=== PATIENT | male | born 1940 | race Caucasian/White ===

== ENCOUNTER → 2024-01-13 10:48 | Outpatient (REF) | payer MEDICARE, SELFPAY | LOC: RCS 10:48 | PROVIDERS: ATTENDING PHYSICIAN Nurse Practitioner; FAMILY PHYSICIAN Family Medicine | DX: I48.0 Paroxysmal atrial fibrillation (principal); R00.1 Bradycardia, unspecified; I25.10 Atherosclerotic heart disease of native coronary artery without angina pectoris | CPT/HCPCS: 93225; 93226 ==

== ENCOUNTER → 2024-01-18 06:22 | Day surgery (SDC) | payer MEDICARE, SELFPAY ==
[2024-01-18 09:25] LABS: Glucose - Point of Care 196 mg/dl (70-99)
== END ==
LOC: GI 06:22
PROVIDERS: ATTENDING PHYSICIAN Internal Medicine Gastroenterology
DX: K22.2 Esophageal obstruction (principal); K44.9 Diaphragmatic hernia without obstruction or gangrene; M25.78 Osteophyte, vertebrae; R13.14 Dysphagia, pharyngoesophageal phase; R13.12 Dysphagia, oropharyngeal phase; Z98.0 Intestinal bypass and anastomosis status
CPT/HCPCS: 43235; 82962

== ENCOUNTER → 2024-01-21 11:16 | Outpatient (REF) | payer MEDICARE, SELFPAY | LOC: DHCBC HW 11:16 | PROVIDERS: ATTENDING PHYSICIAN Nurse Practitioner; FAMILY PHYSICIAN Family Medicine | DX: I48.0 Paroxysmal atrial fibrillation (principal); I25.10 Atherosclerotic heart disease of native coronary artery without angina pectoris; R00.1 Bradycardia, unspecified | CPT/HCPCS: 93306 ==

== ENCOUNTER → 2024-01-27 09:08 | Outpatient (REF) | payer MEDICARE, SELFPAY ==
[2024-01-27 12:53] LABS: ALT (SGPT) 24 U/L (0-50); AST (SGOT) 36 U/L (17-59); Albumin 4.1 g/dl (3.5-5.0); Alkaline Phosphatase 72 U/L (38-126); Blood Urea Nitrogen 16 mg/dl (9-20); Calcium 9.6 mg/dl (8.4-10.2); Carbon Dioxide 31 mmol/L (22-30); Chloride 100 mmol/L (98-107); Glucose 119 mg/dl (70-99); HDL Cholesterol 80 mg/dl; LDL Cholesterol, Calculated 51 mg/dl; Potassium 4.3 mmol/L (3.5-5.1); Sodium 139 mmol/L (135-145); Total Bilirubin 0.8 mg/dl (0.2-1.3); Total Cholesterol 147 mg/dl (50-199); Triglyceride 84 mg/dl (10-149); Very Low Density Lipoprotein 16 mg/dl (0-30); eGFR > 60.00
[2024-01-27 14:07] LABS: Glycohemoglobin (HgbA1c) 7.5 % (4.0-5.6)
== END ==
LOC: HWLAB 09:08
PROVIDERS: ATTENDING PHYSICIAN Family Medicine; OTHER PHYSICIAN Internal Medicine Cardiovascular Disease; REFERRING PHYSICIAN Physician Assistant
DX: E78.2 Mixed hyperlipidemia (principal); E11.40 Type 2 diabetes mellitus with diabetic neuropathy, unspecified
CPT/HCPCS: 36415; 80053; 80061; 83036

== ENCOUNTER → 2024-02-01 13:33 | Outpatient (REF) | payer MEDICARE, SELFPAY | LOC: HWRAD 13:33 | PROVIDERS: ATTENDING PHYSICIAN Internal Medicine Gastroenterology; FAMILY PHYSICIAN Family Medicine | DX: R13.19 Other dysphagia (principal) | CPT/HCPCS: 71270; Q9967 ==

== ENCOUNTER → 2024-05-31 11:07 | Outpatient (REF) | payer MEDICARE, SELFPAY ==
[2024-05-31 16:21] LABS: % Basophils 0.8 % (0-2); % Immature Granulocytes 0.2 % (0-0.5); % Lymphocytes 46.4 % (20.5-51.1); % Monocytes 7.8 % (1.7-9.3); % Neutrophils 41.8 % (42.2-75.2); Absolute Basophils 0.1 10^3/uL (0-0.2); Absolute Eosinophils 0.2 10^3/uL (0-0.7); Absolute Lymphocytes 2.8 10^3/uL (1.2-3.4); Absolute Monocytes 0.5 10^3/uL (0.1-0.6); Absolute Neutrophils 2.5 10^3/uL (1.4-6.5); Hematocrit 39.5 % (39.0-52.0); Hemoglobin 13.2 g/dL (13.0-18.0); Mean Corp Hgb Conc. 33.4 g/dL (33.0-37.0); Mean Corpuscular Hgb 30.9 pg (27.0-31.0); Mean Corpuscular Volume 92.5 fL (80.0-94.0); Mean Platelet Volume 11.3 fL (7.4-10.4); Nucleated Red Blood Cells % 0 % (-); Platelet Count 198 10^3/uL (130-400); Red Blood Cell Count 4.27 10^6/uL (4.70-6.10); Red Cell Dist. Width 13.5 % (11.5-14.5)
[2024-05-31 16:34] LABS: ALT (SGPT) 16 U/L (0-50); AST (SGOT) 33 U/L (17-59); Albumin 4.2 g/dl (3.5-5.0); Alkaline Phosphatase 69 U/L (38-126); Blood Urea Nitrogen 15 mg/dl (9-20); Calcium 9.4 mg/dl (8.4-10.2); Carbon Dioxide 29 mmol/L (22-30); Chloride 102 mmol/L (98-107); Glucose 137 mg/dl (70-99); HDL Cholesterol 74 mg/dl; LDL Cholesterol, Calculated 54 mg/dl; Potassium 4.3 mmol/L (3.5-5.1); Sodium 139 mmol/L (135-145); Total Bilirubin 0.8 mg/dl (0.2-1.3); Total Cholesterol 149 mg/dl (50-199); Total Protein 6.9 g/dl (6.3-8.2); Triglyceride 106 mg/dl (10-149); Very Low Density Lipoprotein 21 mg/dl (0-30); eGFR > 60.00
[2024-05-31 17:00] LABS: Protein/creatinine Ratio 0.1; Urine Protein 7 mg/dl
[2024-05-31 17:06] LABS: Microalbumin, Random Urine 1.7 mg/dl (0.6-1.7); Microalbumin/creatinine Ratio 14.9 mg/g
[2024-06-01 09:05] LABS: Glycohemoglobin (HgbA1c) 6.9 % (4.0-5.6)
== END ==
LOC: HWLAB 11:07
PROVIDERS: ATTENDING PHYSICIAN Physician Assistant; FAMILY PHYSICIAN Family Medicine; REFERRING PHYSICIAN Internal Medicine Cardiovascular Disease
DX: E10.65 Type 1 diabetes mellitus with hyperglycemia (principal); I48.0 Paroxysmal atrial fibrillation; R42 Dizziness and giddiness
CPT/HCPCS: 36415; 80053; 80061; 82043; 82570; 83036; 84156; 85025

== ENCOUNTER 2024-06-09 10:21 | Day surgery (SDC) | payer MEDICARE, SELFPAY ==
[2024-06-09] VITALS (9 sets, daily range): BP systolic 139–169; BP diastolic 61–77; BMI 21.1
[2024-06-09 11:33] LABS: Glucose - Point of Care 139 mg/dl (70-99)
--- NOTE | 2024-06-09 11:43 | W.ICD.CONTRA ---
Post ICD/SENIOR CASE MANAGER-D
-
History of AK?: No
LV Function
Left ventricular function study result?: Ejection Fraction >/= 40%
ACEI/ARB/ARNI
Patient already on ACEI/ARB/ARNI: No
ACEI/ARB/ARNI Not Indicated: Left Ventricular EF >/= 40%
Beta-Adonis
Patient already on Beta Adonis: No
Beta Adonis Contraindication: Symptomatic Bradycardia
--- NOTE | 2024-06-09 15:40 | ITS.CL.ICD ---
Match Up Worker - ICD
Implantable Cardioverter Defibrillator
Procedure Report:
Dual Chamber Implantable Cardioverter Defibrillator Placement:
Mr. Moya is an 84-year-old male with coronary artery disease s/p PCI, HTN, DM, with severe bradycardia and underwent Holter for pre-syncope and noted to have NSVT with sustained VT episodes. He has a class I indication for pacemaker for sick sinus
syndrome and is getting ICD for secondary prevention for his ventricular tachycardia.
Secondary prevention ICD. Ventricular tachycardia with CAD with AL and stent with continued VT and pre-syncope and now with sinus bradycardia
Indications: Sick sinus syndrome with ventricular tachycardia.
Date of the Procedure:
06/09/2024
Pre-Operative Diagnosis: sick sinus syndrome with ventricular tachycardia.
Post-Operative Diagnosis: Ventricular tachycardia and sick sinus syndrome
Procedure Performed: DUAL CHAMBER IMPLANTABLE CARDIOVERTER DEFIBRILLATOR IMPLANTATION
Surgeon:
Marina Pastor MD
Anesthesia:
See anesthesia report
Detailed Description of the Procedure:
The patient was identified using hospital identification and informed consent obtained for the procedure. The risks were explained including, but not limited to: Bleeding, infection, arrhythmia, stroke, vascular/cardiac/lung puncture, surgery,
pacemaker dependency/device malfunction. All questions were answered.
The patient was brought to the electrophysiology laboratory in stable condition in fasting state. Continuous electrocardiographic and hemodynamic monitoring was initiated. The initial rhythm was normal sinus.
The procedure site was meticulously prepared with surgical scrub and allowed to dry with no pooling. Sterile draping was applied to cover the procedure site. The image intensifier was draped with sterile bag and positioned over the patient.
The left infra-clavicular region was prepped and draped in the usual sterile fashion. Local anesthesia was administered subcutaneously using 1% lidocaine / Bupivacaine. The left cephalic vein cut-down was performed with an incision at the
delto-pectoral groove, and vascular sheaths were introduced for lead access. These were advanced into the right ventricle and the right atrium.
The right ventricular lead was secured in position with an active fixation technique at the apical septal location.
The RA lead was attached in the right atrial appendage with active fixation.
There was excellent sensing, pacing, and impedance from the leads, with no diaphragmatic stimulation at 10 V output.�Bovie cautery, antibiotics, and fluoroscopy were used.
The sheath was withdrawn, and the thresholds remained acceptable. The lead was secured in position at the venous entry site with 2-0 Ethibond. A pocket was fashioned contiguous to the incision. The electrode terminals were connected to the pulse
generator, which was placed into the pocket. The wound was irrigated thoroughly with antibiotic solution and closed in 3 layers using 2-0 VLoc sutures followed by 2 layers of 4-0 V-lock sutures. Steri-Strips and a bandage were applied externally.�
Procedure End:
The procedure was tolerated well. A bandage was applied to the incision area.
Estimated Blood loss:
5 cc
Fluoro time:
2.6min / 3.25 mGy
Specimens Removed:
No cultures and no specimens were obtained. No intraoperative pathology was identified.
Urine output:
None
Packs / Drains/ Tubes:
None
Instrument / Sponge Count Correct:
Yes
Complications of the Procedure:
None
Condition of Patient at Time of Transfer:
Hemodynamically stable with no neurological or vascular compromise.
Device information:�
Generator: [employer]; Model: [id number]; Serial # [id number]�
Atrial Lead: [employer]; Model: 5076-52; Serial # [id number]
Measured data in the right atrium was sensing of 3.8 mV, impedance of 770 ohms and threshold of 0.75 V at 0.4ms�
RV Lead: Medtronic; Model: [id number]-[id number]; Serial # [id number]
Measured data in the RV lead was sensing of 3.0 mV, impedance of 550 ohms and threshold of 0.75 V at 0.4ms�
PROGRAMMING PARAMETERS:�
Reynaldo parameter settings were AAIR <=>DDDR 60-130 bpm. �
����������� Mode switch: On
����������� Paced AV delay: 130 ms
����������� Sensed AV delay: 1200 ms
����������� Rate Adaptive A-V Interval: Off
Output parameters:
����������������������� Amplitude (V)������������� Pulse Width (ms)������� Sensitivity (mV)
����������� RA: ����� 3.5 ����������������� ����������� 0.4������������������ ����������� 0.3
����������� RV:������ 3.5������������������ ����������� 0.4������������������ ����������� 0.3
Tachy parameter settings:
����������� SVT discrimination: On
����������� AF/AFl: On
����������� SVT limit: 260 msec
����������� VT zone:
����������������������� Slow VT: 150 - 188 bpm --> Monitor
����������������������� Fast VT/VF: > 188 bpm --> Shock x6 (ATP before and during)
�����������
Summary:
Successful implantation of MRI compatible dual chamber Medtronic implantable Cardioverter Defibrillator.�
Results/Recommendations:
-Please follow up CXR�
1. Please provide patient with adequate pain control�
Instructions to be given to patient:�
- Please follow up with [facility] at [address] [place] [address] ([phone]) to get your wound checked within 14 days of your discharge.
- Do not soak incision site until after it is evaluated at cardiology clinic. OK to showers followed by dab dry the area. No baths or swimming until then. Sponge baths are OK.�
- Allow 'steri strips' to fall off on their own�
- Do not lift left elbow above shoulder, particularly with sudden jerking movements, for 1 month�
- Do not lift anything weighing more than 5 pounds with the left arm for 1 month�
- If you notice any fevers, shortness of breath, lightheadedness, chest pain, or worsening swelling in the wound site, please contact the arrhythmia clinic, contact your washtub worker, or present to the hospital for evaluation.�
Marina Pastor MD
Electrophysiology
--- NOTE | 2024-06-09 16:07 | CM ---
Reviewed chart. Met with and Mrs. Moya to review discharge plans. He states prior to admission he resides with his spouse in a spilt level home with five steps to enter. He states he has five steps to get to each level. He states prior to
admission he was independent with ambulation and adls. He states he does not have any DME in the home. He states he has a prescription plan and uses [facility]. The discharge plan is to return home with his spouse when medically stable.
--- NOTE | 2024-06-09 16:57 | PTCARENOTE ---
received pt post PPM, pt oriented to unit. ppm site left chest wall CDI. immobilizer in place. Pt is Apaced on the monitor, hr in the 60s, vss. pt denies pain at this time. pt at bedside visiting. pt educated on plan of care and pt verbalized
understanding.
[2024-06-09 17:23] LABS: Glucose - Point of Care 132 mg/dl (70-99)
[2024-06-09] MEDS: NOVOLOG FLEXPEN-MODERATE RESISTANCE SC (17:53)
[2024-06-09] MEDS: LIPITOR 20 MG PO (18:15)
[2024-06-09] MEDS: ZENPEP DELAYED RELEASE CAPSULE 1 CAPSULE PO (18:15)
[2024-06-09] MEDS: ANCEF 5 IV (19:35)
[2024-06-09] MEDS: ELIQUIS 5 MG PO (19:35)
--- NOTE | 2024-06-09 20:20 | PTCARENOTE ---
Received patient for the night. Left immobilizer in place. Aquacel dressing on left chest with two small areas of bleeding noted, less than dime size. Sinus rhythm on the monitor, with A pacing and PVCs. Bed alarm placed secondary to patients hx of
falls and forgetfulness. Patient reports no pain at this time but is aware to call for Tylenol if needed. Call peoples within reach.
[2024-06-09] MEDS: TYLENOL 650 MG PO (22:14)
[2024-06-09] MEDS: PROTONIX 40 MG PO (22:14)
[2024-06-09 22:22] LABS: Glucose - Point of Care 243 mg/dl (70-99)
--- NOTE | 2024-06-09 22:31 | PTCARENOTE ---
Patient medicated with Tylenol for 3/10 ICD site discomfort.
[2024-06-10] MEDS: ANCEF 5 IV (04:14)
[2024-06-10] MEDS: TYLENOL 650 MG PO ×2 (04:15→09:02)
[2024-06-10 04:16] VITALS: BP 152/66
[2024-06-10 04:18] VITALS: BMI 20.3
[2024-06-10 04:19] LABS: Hematocrit 38.8 % (39.0-52.0); Hemoglobin 13.4 g/dL (13.0-18.0); Mean Corp Hgb Conc. 34.5 g/dL (33.0-37.0); Mean Corpuscular Hgb 31.8 pg (27.0-31.0); Mean Corpuscular Volume 92.2 fL (80.0-94.0); Mean Platelet Volume 10.7 fL (7.4-10.4); Platelet Count 144 10^3/uL (130-400); Red Blood Cell Count 4.21 10^6/uL (4.70-6.10); White Blood Cell Count 7.7 10^3/uL (4.8-10.8)
--- NOTE | 2024-06-10 04:33 | PTCARENOTE ---
Medicated the patient for 2/10 discomfort at the pacer site with Tylenol. Shortly after receiving the dose the patient complained of abdominal pain, abdomen was nontender and soft. Warm blanket applied for comfort. ICD dressing remains intact, no
active bleeding or hematoma.
[2024-06-10 04:44] LABS: Blood Urea Nitrogen 24 mg/dl (9-20); Calcium 9.1 mg/dl (8.4-10.2); Carbon Dioxide 23 mmol/L (22-30); Chloride 102 mmol/L (98-107); Estimated Creatinine Clearance 61 ml/min; Glucose 241 mg/dl (70-99); Potassium 4.8 mmol/L (3.5-5.1); Sodium 133 mmol/L (135-145); eGFR > 60.00
[2024-06-10 08:01] VITALS: BP 149/76
[2024-06-10 08:08] LABS: Glucose - Point of Care 200 mg/dl (70-99)
--- NOTE | 2024-06-10 08:13 | W.PN.CD ---
Addendum entered and electronically signed by Alexey Bradley MD 06/10/24 09:48:
I saw and examined the patient.
The AUTO CLEANER's note was reviewed and I agree with the note.
Comment: He is feeling well, had some abdominal pain with dinner yesterday that has resolved, thinks his supplementation was wrong. Otherwise no cp or sob. RRR, no m/r/g, lungs cta, CXR without ptx and correct pacer lead placement. Telemetry with
sinus rhythm with frequent PVCs at times ventricular triplets. Agree with starting metoprolol. We discussed the appropriate care of his device site. We will arrange for outpatient follow-up to remove his dressing. Eliquis has been resumed.
Blood pressure with plenty of room to support beta-oly initiation. Okay to discharge home. Greater than 30 minutes spent on his discharge today.
Original Note:
Today's Communication / Plan
-
Discharge planning
Impression / Plan
-
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
ectopy (NSVT) found on Holter monitoring
NSVT
-Frequent episodes on Holter monitor now status post BiV ICD with baseline bradycardia
-Pacemaker site without hematoma
-EKG this morning shows atrial paced rhythm
-CXR stable
-Telemetry with triplets and PVCs, increase metoprolol succinate to 25mg daily
-We reviewed activity restrictions, he verbalized understanding
Paroxysmal atrial fibrillation, on apixaban
CAD, stable without chest pain
HTN, stable
Type 2 diabetes mellitus requiring insulin, followed by PCP
Physical Exam
Vital Signs/Labs
Vital Signs
Temp Pulse Resp BP Pulse Ox
98.5 F 69 16 149/76 100
06/10/24 07:57 06/10/24 08:01 06/10/24 07:57 06/10/24 08:01 06/10/24 07:57
06/09/24 06/10/24 06/11/24
06:59 06:59 06:59
Actual Weight 62.3 kg
06/10/24 04:12
06/10/24 04:12
Physical Exam
Constitutional: No acute distress and Comfortable
EENT: Anicteric and Moist mucous membranes
Cardiovascular: Rhythm & rate is regular, Pedal edema is absent and Murmur/rub/gallop absent
Respiratory: Respiratory effort normal and Lungs clear to auscul.
GI: Soft, Distention absent, Flat and Non tender
Neuro/Psych: AO x 3
Other: Skin (warm and dry without edema) and Cardiac Device Site (dressing C/D/I without hematoma)
Data Reviewed
-
Date of Service: June 10, 2024
--- NOTE | 2024-06-10 08:28 | PTCARENOTE ---
Assumed care of pt from night RN. Pt received awake and alert, Ox3. VSs, CM shows NSR with A/pacing, POX 100% on RA. Immobilizer in place to left arm, movement restrictions reviewed with pt. Pacemaker site remains CDI, tegaderm intact. Tylenol
given as per DEC for left chest incisional pain. For potential D/C today.
[2024-06-10] MEDS: NOVOLOG FLEXPEN-MODERATE RESISTANCE 3 UNITS SC (08:55)
[2024-06-10] MEDS: ZENPEP DELAYED RELEASE CAPSULE 1 CAPSULE PO (08:56)
[2024-06-10] MEDS: ELIQUIS 5 MG PO (08:56)
--- NOTE | 2024-06-10 09:29 | W.DS.TRANS ---
DC Summary - Youth Ministry Director
-
Discharge Instructions:
Discharge Diagnosis/Procedures ICD implantation
Diet Low Cholesterol,Diabetic, Carb Controlled
Activity No strenuous activity
Additional Activity See attached instructions
Driving Restrictions No driving for 1 week
Bathing Restrictions OK to Shower
Instructions:
Stand-Alone Forms: DC Inst - Implanted Device
Changes to Home Medications: Yes
Discharge Medications:
DC Medications w/original date entered in [employer]
atorvastatin 20 mg tablet 20 mg PO QPM 02/04/19
fevpyo-pilkfxhi-octkeeu 12,000-38,000-60,000 unit capsule,delayed rel 3 cap PO MEALS 02/04/19
polyvinyl alcohol-povidone (PF) 1.4 %-0.6 % eye drops in a dropperette (Refresh Classic (PF)) 1 drops ophthalmic (eye) QIDPRN PRN IRRITATION/DRYNESS 02/06/19
cholecalciferol (vitamin D3) 50 mcg (2,000 unit) tablet 3,000 units PO DAILY 03/20/19
diclofenac sodium 1 % topical gel (Voltaren) 100 gm TP PRN PRN knee pain 03/20/19
triamcinolone acetonide 32 mg intra-articular suspension ext.releas (Zilretta) 32 mg IU .6MONTHS 03/20/19
apixaban 5 mg tablet (Eliquis) 5 mg PO BID #60 tabs 01/05/20
omeprazole 40 mg capsule,delayed release 40 mg PO HS 01/05/20
insulin human U-100 NPH-regulr 70-30 mix 100 unit/mL subcutaneous susp 2 - 8 unit SC MEALS 06/09/24
acetaminophen 325 mg tablet 650 mg (2 x 325 mg) PO Q4HPRN PRN MILD PAIN #1 tab 06/10/24
metoprolol succinate 25 mg tablet,extended release 24 hr 25 mg PO DAILY #30 tabs 06/10/24
Home Medication Changes
Metoprolol succinate was increased from 12.5 mg daily to 25 mg daily
Pending Results: No
[2024-06-10] MEDS: TOPROL XL 25 MG PO (09:40)
[2024-06-10] MEDS: ZENPEP DELAYED RELEASE CAPSULE 2 CAPSULE PO (09:41)
[2024-06-10] MEDS: PREVNAR 20 0.5 ML IM (11:22)
--- NOTE | 2024-06-10 11:34 | PTCARENOTE ---
Prevanar Vax given as per DEC.
[2024-06-10 11:45] VITALS: BP 138/68
--- NOTE | 2024-06-10 12:19 | PTCARENOTE ---
All D/C info reviewed with pt, all questions answered. Pt D/C'd home with spouse.
== END 2024-06-10 12:20 | disposition home or self-care (01) ==
LOC: CATH 10:21
PROVIDERS: Nurse Practitioner; ATTENDING PHYSICIAN Internal Medicine Cardiovascular Disease; FAMILY PHYSICIAN Family Medicine; OTHER PHYSICIAN Internal Medicine Cardiovascular Disease
DX: I47.29 Other ventricular tachycardia (principal); I47.10 Supraventricular tachycardia, unspecified; I25.10 Atherosclerotic heart disease of native coronary artery without angina pectoris; Z95.5 Presence of coronary angioplasty implant and graft; I48.0 Paroxysmal atrial fibrillation; Z79.01 Long term (current) use of anticoagulants; Z79.4 Long term (current) use of insulin; Z79.899 Other long term (current) drug therapy; I49.5 Sick sinus syndrome; E11.9 Type 2 diabetes mellitus without complications; I25.82 Chronic total occlusion of coronary artery; R42 Dizziness and giddiness
CPT/HCPCS: 33249; 71045; 80048; 82962; 85027; 90677; 93005; C1721; C1777; C1892; C1898; G0009

== ENCOUNTER → 2024-10-02 10:44 | Outpatient (REF) | payer MEDICARE, SELFPAY ==
[2024-10-02 16:00] LABS: ALT (SGPT) 33 U/L (0-50); AST (SGOT) 45 U/L (17-59); Albumin 4.6 g/dl (3.5-5.0); Alkaline Phosphatase 59 U/L (38-126); Blood Urea Nitrogen 17 mg/dl (9-20); Calcium 9.4 mg/dl (8.4-10.2); Carbon Dioxide 32 mmol/L (22-30); Chloride 100 mmol/L (98-107); Glucose 138 mg/dl (70-99); Potassium 4.3 mmol/L (3.5-5.1); Sodium 140 mmol/L (135-145); Total Bilirubin 0.7 mg/dl (0.2-1.3); Total Protein 7.3 g/dl (6.3-8.2); eGFR > 60.00
[2024-10-02 16:17] LABS: Vitamin D, 25-OH*** 43.9 ng/mL (30-80)
[2024-10-03 08:58] LABS: Glycohemoglobin (HgbA1c) 6.9 % (4.0-5.6)
== END ==
LOC: HWLAB 10:44
PROVIDERS: ATTENDING PHYSICIAN Family Medicine; OTHER PHYSICIAN Internal Medicine Cardiovascular Disease; OTHER PHYSICIAN Internal Medicine Rheumatology; REFERRING PHYSICIAN Physician Assistant
DX: E11.40 Type 2 diabetes mellitus with diabetic neuropathy, unspecified (principal); E55.9 Vitamin D deficiency, unspecified
CPT/HCPCS: 36415; 80053; 82306; 83036

== ENCOUNTER 2024-10-20 11:44 | Emergency (ER) | payer MEDICARE, SELFPAY ==
[2024-10-20 11:45] VITALS: BP 160/77
[2024-10-20 11:48] VITALS: BP 160/77; BMI 19.2
[2024-10-20 12:00] VITALS: BP 145/71
[2024-10-20 12:03] LABS: % Basophils 0.2 % (0-2); % Eosinophils 0.2 % (0-6); % Immature Granulocytes 0.2 % (0-0.5); % Lymphocytes 10.3 % (20.5-51.1); % Monocytes 7.1 % (1.7-9.3); Absolute Lymphocytes 1.4 10^3/uL (1.2-3.4); Absolute Neutrophils 10.9 10^3/uL (1.4-6.5); Hematocrit 39.8 % (39.0-52.0); Hemoglobin 13.5 g/dL (13.0-18.0); Mean Corp Hgb Conc. 33.9 g/dL (33.0-37.0); Mean Corpuscular Hgb 32.4 pg (27.0-31.0); Mean Corpuscular Volume 95.4 fL (80.0-94.0); Mean Platelet Volume 9.5 fL (7.4-10.4); Nucleated Red Blood Cells % 0 % (-); Platelet Count 201 10^3/uL (130-400); Red Blood Cell Count 4.17 10^6/uL (4.70-6.10); Red Cell Dist. Width 13.2 % (11.5-14.5); White Blood Cell Count 13.3 10^3/uL (4.8-10.8)
[2024-10-20 12:19] LABS: ALT (SGPT) 26 U/L (0-50); AST (SGOT) 42 U/L (17-59); Albumin 4.4 g/dl (3.5-5.0); Alkaline Phosphatase 97 U/L (38-126); Blood Urea Nitrogen 16 mg/dl (9-20); Calcium 9.3 mg/dl (8.4-10.2); Carbon Dioxide 30 mmol/L (22-30); Chloride 98 mmol/L (98-107); Estimated Creatinine Clearance 67 ml/min; Glucose 169 mg/dl (70-99); Potassium 4.6 mmol/L (3.5-5.1); Sodium 135 mmol/L (135-145); Total Bilirubin 0.9 mg/dl (0.2-1.3); Total Protein 7.2 g/dl (6.3-8.2); eGFR > 60.00
[2024-10-20 13:00] VITALS: BP 133/59
[2024-10-20 14:00] VITALS: BP 95/78
--- NOTE | 2024-10-20 14:24 | ED.GENMED ---
History of Present Illness
General
Chief Complaint: Generalized Pain
Source: patient and spouse
Time Seen by Provider: 10/20/24 14:05
History of Present Illness
History of Present Illness:
84-year-old male presents to the emergency room complaining of pain which she describes pain all over his body. Patient has been suffering from low back pain for years. He states it has been getting worse. Today it was making it difficult for him
to get out of bed. He also noted discomfort all over his body in his extremities and even in his chest. No associated shortness of breath. Patient's has observed his pain is worse in the morning and improves throughout the course of the day.
He has been taking Tylenol for the pain. He was seen by an orthopedics teacher at [facility] orth[facility] recently. They believe this doctor ordered some imaging but they do not know what specifically was ordered. Patient denies fever,
shortness of breath, nausea or vomiting. He has a chronic cough.
Past History
Past History
ED Past Medical History: HTN, Hypercholesterolemia, IDDM and Other (Ulcers)
ED Past Surgical History: Cardiac (Stents X2), Cholecystectomy and Other ([place])
Social History
Tobacco: Non-smoker
Alcohol: None
Personal:
Living: with family
Phy Exam
Physical Exam
Physical Exam:
General: Awake, Alert, Oriented X3. No acute distress.
Vitals: unremarkable
Head: Atraumatic
Eyes: Pupils equal, EOMI
Throat: Airway intact, no exudates
Neck: Trachea midline
Lungs: Clear and equal b/l
Heart: Regular rate, no murmurs
Abd: Soft, Nontender, No pulsatile mass
Back: No midline tenderness to palpation over the third thoracic or lumbar spine. He does have tenderness in the right and left paraspinal musculature
Neuro: No focal weakness
Skin: Warm, dry, no rash
Extremities: pulses equal b/l, no edema
Course
Orders/Labs/Results
Orders:
Orders
10/20/24 11:54
CMP [Comprehensive Metabolic Panel] Urgent
Complete Blood Count/With Diff Urgent
10/20/24 14:23
[address] wo Contrast CT [CT Lumbar Spine W/o Iv Contras] Urgent
Comment:
Reason For Exam: severe low back pain
Ketorolac [Toradol] 15 mg IV NOW STA
10/20/24 14:25
Electrocardiogram (*1) Urgent
Reason for Study: Chest Pain
EKG- Treatment ONCE
10/20/24 14:38
COVID-19 Antigen Urgent
Source: Nasal Swab
Troponin I Urgent
Urinalysis Reflex To Culture Urgent
Date Specimen was Collected: 10/20/24
Time Specimen was Collected: 14:36
Influenza A+B Rapid Molecular Urgent
FACUNDO Source: Nasal Swab
Specimen Description:
Abnormal Lab Results
10/20/24 10/20/24
11:54 14:38
WBC 13.3 H 10^3/uL
(4.8-10.8)
RBC 4.17 L 10^6/uL
(4.70-6.10)
MCV 95.4 H fL
(80.0-94.0)
MCH 32.4 H pg
(27.0-31.0)
Absolute Neuts (auto) 10.9 H 10^3/uL
(1.4-6.5)
Absolute Monos (auto) 1.0 H 10^3/uL
(0.1-0.6)
Neutrophils % 82.0 H %
(42.2-75.2)
Lymphocytes % 10.3 L %
(20.5-51.1)
Glucose 169 H mg/dl
(70-99)
Urine Ketones 2+ A
(Negative)
10/20/24 11:54
10/20/24 11:54
Vital Signs
Initial and Last Documented VS:
Initial Vital Signs
BP
160/77
10/20/24 11:45
Last Documented Vital Signs
Temp Pulse Resp BP Pulse Ox
99.0 F 71 25 121/64 98
10/20/24 11:48 10/20/24 15:15 10/20/24 15:15 10/20/24 15:00 10/20/24 15:15
MDM/Problems Addressed
Differential Diagnosis Includes:
Osteoarthritis, viral illness, COVID, UTI
MDM/Problems Addressed:
Patient presents with progressively worse back pain as well as diffuse joint pain today. No evidence of an infectious process. Lumbar spine CT obtained shows no significant compression fracture or other abnormality other than degenerative disease.
Patient stable for discharge home. Will start low-dose gabapentin.
*Pulse Oximetry
Patient hypoxic: no
*EKG
Interpreted by ED Provider?: Yes
Interpretation: normal
Heart Rate: 64
Rate: normal
Rhythm: sinus
[place]: normal axis
Interval: normal interval
QRS Pattern: normal QRS
Ischemia: no ischemia
*Forest Scientist Interpretation
Rate: normal
Interpretation: normal
*Critical Care Note
Total Time (30-74mins, 75-104mins- exclusive of procedures): Not Applicable
Data Reviewed
Review of Other/Old Records Reveals: Records
ED Attending Note
-
Portions of this chart may have been created with voice recognition software.� Occasional wrong word or��sound alike� substitutions may have occurred due to the inherent limitations of voice recognition software.
Discharge Plan
Departure
Patient Disposition: Home (Routine Discharge)
Date of Disposition: 10/20/24
Time of Disposition: 17:11
Patient with high blood pressure during this ER visit?: No
Condition: Good
Discharge Problem:
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
Instructions: Low back pain in adults
Prescriptions:
New
gabapentin 100 mg capsule
100 mg PO BID Qty: 60 0RF
No Action
atorvastatin 20 MG tablet
20 mg PO QPM
skjszd-cbmjoztx-pdddpep 1 EACH capsule,delayed release(DR/EC)
3 cap PO MEALS
Refresh Classic (PF) 10 DROPS dropperette
1 drops ophthalmic (eye) QIDPRN PRN (Reason: IRRITATION/DRYNESS) 0RF
diclofenac sodium [Voltaren] 100 GM gel
100 gm TP PRN PRN (Reason: knee pain)
cholecalciferol (vitamin D3) 2,000 UNITS tablet
3,000 units PO DAILY
Zilretta 32 MG suspension,extended rel recon
32 mg IU .6MONTHS
omeprazole 40 MG capsule,delayed release(DR/EC)
40 mg PO HS
Eliquis 5 MG tablet
5 mg PO BID Qty: 60 5RF
insulin NPH and regular human 100 unit/mL (70-30) Suspension
2 - 8 unit SC MEALS
metoprolol succinate 25 mg Tablet Extended Release 24 Hr
25 mg PO DAILY Qty: 30 0RF
acetaminophen 325 mg Tablet
650 mg PO Q4HPRN PRN (Reason: MILD PAIN) Qty: 1 0RF
Referrals:
Ed Bill MD [Family Provider] -
Interventions
Interventions:
*Risk Screen - Suicide Last Done: 10/20/24 11:48
*General Assessment Last Done: 10/20/24 11:48
*Neglect/Abuse Screening Last Done: 10/20/24 11:48
ED- Fall Risk Assessment Last Done: 10/20/24 11:48
*ED COVID-19 Vaccine History Last Done: 10/20/24 11:48
*Nursing Disposition Last Done: 10/20/24 17:18
Discharge Date and Time
Discharge Date/Time: 10/20/24 17:19
Print Language: [email or web address]
[2024-10-20] MEDS: TORADOL 15 MG IV (14:42)
[2024-10-20 15:00] VITALS: BP 121/64
[2024-10-20 15:05] LABS: COVID-19 Antigen Negative (Negative)
[2024-10-20 15:31] LABS: Troponin I < 0.012 ng/ml
[2024-10-20 16:38] LABS: Urine Albumin Negative (Neg - Trace); Urine Bilirubin Negative (Negative); Urine Character Clear (Clear); Urine Color Yellow; Urine Glucose Negative (Negative); Urine Ketone 2+ (Negative); Urine Leukocyte Negative (Negative); Urine Nitrite Negative (Negative); Urine Occult Blood Negative (Negative); Urine Urobilinogen Negative (Neg - 1+); Urine pH 6.5 (5.0-9.0)
== END 2024-10-20 17:19 | disposition home or self-care (01) ==
LOC: EMR 11:44
PROVIDERS: Physician Assistant Medical; EMERGENCY PHYSICIAN Emergency Medicine; FAMILY PHYSICIAN Family Medicine
DX: M54.50 Low back pain, unspecified (principal); M47.817 Spondylosis without myelopathy or radiculopathy, lumbosacral region; M79.10 Myalgia, unspecified site; I10 Essential (primary) hypertension; E78.00 Pure hypercholesterolemia, unspecified; E11.9 Type 2 diabetes mellitus without complications; Z79.4 Long term (current) use of insulin; Z90.49 Acquired absence of other specified parts of digestive tract; Z95.5 Presence of coronary angioplasty implant and graft
CPT/HCPCS: 99284; 96374; 72131; 80053; 81003; 84484; 85025; 87502; 87811; 93005

== ENCOUNTER → 2024-12-22 11:28 | Outpatient (REF) | payer MEDICARE, SELFPAY | LOC: HWRAD 11:28 | PROVIDERS: ATTENDING PHYSICIAN Family Medicine | DX: R91.8 Other nonspecific abnormal finding of lung field (principal); J92.9 Pleural plaque without asbestos; Z77.090 Contact with and (suspected) exposure to asbestos | CPT/HCPCS: 71250 ==

== ENCOUNTER → 2025-01-02 12:58 | Outpatient (REF) | payer MEDICARE, SELFPAY | LOC: MRI 12:58 | PROVIDERS: ATTENDING PHYSICIAN Pain Medicine Interventional Pain Medicine; FAMILY PHYSICIAN Family Medicine | DX: M54.16 Radiculopathy, lumbar region (principal) | CPT/HCPCS: 72148 ==

== ENCOUNTER → 2025-01-09 11:07 | Outpatient (REF) | payer MEDICARE, SELFPAY ==
[2025-01-09 15:53] LABS: ALT (SGPT) 23 U/L (0-50); AST (SGOT) 36 U/L (17-59); Albumin 3.7 g/dl (3.5-5.0); Alkaline Phosphatase 84 U/L (38-126); Blood Urea Nitrogen 18 mg/dl (9-20); Calcium 9.1 mg/dl (8.4-10.2); Carbon Dioxide 31 mmol/L (22-30); Chloride 101 mmol/L (98-107); Glucose 202 mg/dl (70-99); Potassium 4.5 mmol/L (3.5-5.1); Sodium 136 mmol/L (135-145); Total Bilirubin 0.5 mg/dl (0.2-1.3); Total Protein 6.4 g/dl (6.3-8.2); eGFR > 60.00
== END ==
LOC: HWRAD 11:07
PROVIDERS: ATTENDING PHYSICIAN Internal Medicine Rheumatology; FAMILY PHYSICIAN Family Medicine
DX: M81.0 Age-related osteoporosis without current pathological fracture (principal)
CPT/HCPCS: 36415; 77080; 80053

== ENCOUNTER → 2025-03-27 09:27 | Outpatient (REF) | payer MEDICARE, SELFPAY ==
[2025-03-27 12:22] LABS: Hematocrit 40.8 % (39.0-52.0); Hemoglobin 13.2 g/dL (13.0-18.0); Mean Corp Hgb Conc. 32.4 g/dL (33.0-37.0); Mean Corpuscular Hgb 31.2 pg (27.0-31.0); Mean Corpuscular Volume 96.5 fL (80.0-94.0); Mean Platelet Volume 10.6 fL (7.4-10.4); Platelet Count 166 10^3/uL (130-400); Red Blood Cell Count 4.23 10^6/uL (4.70-6.10); Red Cell Dist. Width 15.2 % (11.5-14.5)
[2025-03-27 12:40] LABS: ALT (SGPT) 20 U/L (0-50); AST (SGOT) 30 U/L (17-59); Albumin 4.4 g/dl (3.5-5.0); Alkaline Phosphatase 67 U/L (38-126); Blood Urea Nitrogen 18 mg/dl (9-20); Calcium 9.4 mg/dl (8.4-10.2); Carbon Dioxide 31 mmol/L (22-30); Chloride 105 mmol/L (98-107); Glucose 124 mg/dl (70-99); HDL Cholesterol 82 mg/dl; LDL Cholesterol, Calculated 62 mg/dl; Potassium 4.6 mmol/L (3.5-5.1); Sodium 143 mmol/L (135-145); Total Bilirubin 0.5 mg/dl (0.2-1.3); Total Cholesterol 170 mg/dl (50-199); Total Protein 7.6 g/dl (6.3-8.2); Triglyceride 132 mg/dl (10-149); Very Low Density Lipoprotein 26 mg/dl (0-30); eGFR > 60.00
[2025-03-27 12:52] LABS: Glycohemoglobin (HgbA1c) 6.9 % (4.0-5.6)
[2025-03-27 13:08] LABS: TSH 2.39 uIU/ml (0.47-4.68)
[2025-03-27 13:12] LABS: Protein/creatinine Ratio 0.3; Urine Protein 11 mg/dl
[2025-03-27 13:21] LABS: Microalbumin, Random Urine <0.6 mg/dl (0.6-1.7)
== END ==
LOC: HWLAB 09:27
PROVIDERS: ATTENDING PHYSICIAN Physician Assistant; FAMILY PHYSICIAN Family Medicine; REFERRING PHYSICIAN Internal Medicine Cardiovascular Disease
DX: E11.9 Type 2 diabetes mellitus without complications (principal)
CPT/HCPCS: 36415; 80053; 80061; 82043; 82570; 83036; 84156; 84443; 85027

== ENCOUNTER 2025-04-20 12:40 | Emergency (ER) | payer MEDICARE, SELFPAY ==
[2025-04-20 12:42] VITALS: BP 154/77
--- NOTE | 2025-04-20 13:29 | ED.GENMED ---
History of Present Illness
General
Chief Complaint: Rectal Bleeding
Time Seen by Provider: 04/20/25 12:58
History of Present Illness
History of Present Illness:
85-year-old male with history of hypertension, diabetes, hyperlipidemia, A-fib on Eliquis, history of ventricular tachycardia with AICD presenting to the emergency department for concern of blood per rectum. Patient reports symptoms for the past 3
days. Reports that he has had this issue on and off in the past, however in the past few days has been more persistent, notes a significant amount of blood in the toilet with last episode this morning. Reports that the blood is bright red. Does
also note history of external hemorrhoid. Denies chest pain, difficulty breathing, abdominal pain. Denies weakness or lightheadedness. Patient talked to his doctor, stopped his Eliquis yesterday. Denies additional acute medical complaints
Past History
Past History
ED Past Medical History: HTN, Hypercholesterolemia, IDDM and Other (Ulcers)
ED Past Surgical History: Cardiac (Stents X2), Cholecystectomy and Other ([facility])
Social History
Tobacco: Non-smoker
Alcohol: None
Personal:
Living: with family
Phy Exam
Physical Exam
Physical Exam:
General: Well-appearing, no clinical signs of dehydration, nontoxic and in no acute distress
HEENT: protecting airway
Neck: appears supple
CV: Normal heart rate, regular rhythm
Resp: No accessory muscle use, no increased work of breathing, lungs clear to auscultation bilaterally
Abd: Soft and non-distended, no tenderness to palpation
Extremities: No deformities, no swelling
Neuro: alert, no focal neurologic deficit
: dried blood on surrounding rectal region
Rectal: Dried blood in the rectal region
Psych: Normal affect
Skin: Intact
Course
Orders/Labs/Results
Orders:
Orders
04/20/25 13:10
Urinalysis Reflex To Culture Urgent
Date Specimen was Collected: 04/20/25
Time Specimen was Collected: 13:13
04/20/25 13:17
Complete Blood Count/With Diff Urgent
Comprehensive Metabolic Panel Urgent
PTT Urgent
Prothrombin Time Urgent
04/20/25 13:27
CT Angio Abd/Pelvis w/wo IV [CT Abd/pelvis Angio W/wo Iv] Urgent
Comment:
Reason For Exam: GI bleed on eliquis
Abnormal Lab Results
04/20/25
13:17
RBC 3.46 L 10^6/uL
(4.70-6.10)
Hgb 11.2 L g/dL
(13.0-18.0)
Hct 33.5 L %
(39.0-52.0)
MCV 96.8 H fL
(80.0-94.0)
MCH 32.4 H pg
(27.0-31.0)
Monocytes % 9.8 H %
(1.7-9.3)
PT 17.0 H Sec
(11.4-14.6)
BUN 24 H mg/dl
(9-20)
Glucose 183 H mg/dl
(70-99)
04/20/25 13:17
04/20/25 13:17
Vital Signs
Initial and Last Documented VS:
Initial Vital Signs
Temp Pulse Resp BP Pulse Ox
98.1 F 64 20 154/77 100
04/20/25 12:42 04/20/25 12:42 04/20/25 12:42 04/20/25 12:42 04/20/25 12:42
Last Documented Vital Signs
Temp Pulse Resp BP Pulse Ox
98.1 F 68 18 170/68 98
04/20/25 12:42 04/20/25 16:16 04/20/25 16:16 04/20/25 16:16 04/20/25 16:16
MDM/Problems Addressed
MDM/Problems Addressed:
85-year-old male with history of hypertension, diabetes, hyperlipidemia, A-fib on Eliquis, history of ventricular tachycardia with AICD presenting to the emergency department for concern of blood per rectum for 3 days. Vital signs are significant
for mild hypertension.
On exam patient is resting comfortably, no acute distress. No tenderness to the abdomen. Dried blood to the rectal region. Given anticoagulation status with worsening GI bleed, will obtain laboratory analysis. Patient notes there is a lot of
blood every time he has a bowel movement. No present hemodynamic instability, however active GI bleed is a consideration. Will plan for CT imaging.
16:40 -patient's hemoglobin has dropped slightly from last month, however no present indication for transfusion. CT without any active bleed. There is mention of soft tissue inflammation in the gluteal cleft. No external signs of infection.
There is an area at the thoracic spine, however patient is aware of this, being followed by dermatology. Advised admission given continued bleeding on anticoagulation, however patient is hemodynamically stable and denies any present acute
complaints. He would prefer to go home to watch his symptoms. Feel reasonable given his hemodynamic stability, however explained at length that if bleeding at any point is worsening or he develops shortness of breath, lightheadedness, dizziness to
immediately return to the hospital. Patient reports that he will follow-up with his GI doctor. Return precautions discussed
*Pulse Oximetry
SaO2: 100
Oxygen Mode of Delivery: Room air
*Critical Care Note
Total Time (30-74mins, 75-104mins- exclusive of procedures): Not Applicable
ED Attending Note
-
Portions of this chart may have been created with voice recognition software.� Occasional wrong word or��sound alike� substitutions may have occurred due to the inherent limitations of voice recognition software.
Discharge Plan
Departure
Prescriptions:
No Action
atorvastatin 20 MG tablet
20 mg PO QPM
muwynr-ptadbidt-zwnlwyy 1 EACH capsule,delayed release(DR/EC)
3 cap PO MEALS
Refresh Classic (PF) 10 DROPS dropperette
1 drops ophthalmic (eye) QIDPRN PRN (Reason: IRRITATION/DRYNESS) 0RF
diclofenac sodium [Voltaren] 100 GM gel
100 gm TP PRN PRN (Reason: knee pain)
cholecalciferol (vitamin D3) 2,000 UNITS tablet
3,000 units PO DAILY
Zilretta 32 MG suspension,extended rel recon
32 mg IU .6MONTHS
omeprazole 40 MG capsule,delayed release(DR/EC)
40 mg PO HS
Eliquis 5 MG tablet
5 mg PO BID Qty: 60 5RF
insulin NPH and regular human 100 unit/mL (70-30) Suspension
2 - 8 unit SC MEALS
metoprolol succinate 25 mg Tablet Extended Release 24 Hr
25 mg PO DAILY Qty: 30 0RF
acetaminophen 325 mg Tablet
650 mg PO Q4HPRN PRN (Reason: MILD PAIN) Qty: 1 0RF
gabapentin 100 mg capsule
100 mg PO BID Qty: 60 0RF
Referrals:
Ed Bill MD [Family Provider, Family Practice]
Interventions
Interventions:
*Risk Screen - Suicide Last Done: 04/20/25 12:42
*General Assessment Last Done: 04/20/25 12:51
*Neglect/Abuse Screening Last Done: 04/20/25 12:42
OV-Njjkmw-Qewcbrwohu Assessment Last Done: 04/20/25 12:51
ED- Cardiac Assessment Last Done: 04/20/25 12:51
ED- Pulmonary Assessment Last Done: 04/20/25 12:51
Discharge Date and Time
Print Language: PALAUAN
[2025-04-20 13:31] LABS: % Basophils 0.7 % (0-2); % Eosinophils 2.1 % (0-6); % Immature Granulocytes 0.2 % (0-0.5); % Lymphocytes 35.7 % (20.5-51.1); % Monocytes 9.8 % (1.7-9.3); % Neutrophils 51.5 % (42.2-75.2); Absolute Eosinophils 0.1 10^3/uL (0-0.7); Absolute Monocytes 0.6 10^3/uL (0.1-0.6); Absolute Neutrophils 2.9 10^3/uL (1.4-6.5); Hematocrit 33.5 % (39.0-52.0); Hemoglobin 11.2 g/dL (13.0-18.0); Mean Corp Hgb Conc. 33.4 g/dL (33.0-37.0); Mean Corpuscular Hgb 32.4 pg (27.0-31.0); Mean Corpuscular Volume 96.8 fL (80.0-94.0); Mean Platelet Volume 10.1 fL (7.4-10.4); Nucleated Red Blood Cells % 0 % (-); Platelet Count 142 10^3/uL (130-400); Red Blood Cell Count 3.46 10^6/uL (4.70-6.10); Red Cell Dist. Width 13.9 % (11.5-14.5); White Blood Cell Count 5.6 10^3/uL (4.8-10.8)
[2025-04-20 13:40] LABS: INR 1.35
[2025-04-20 13:41] LABS: APTT 34.7 Sec (23.4-35.0)
[2025-04-20 13:58] LABS: ALT (SGPT) 17 U/L (0-50); AST (SGOT) 26 U/L (17-59); Alkaline Phosphatase 63 U/L (38-126); Blood Urea Nitrogen 24 mg/dl (9-20); Calcium 9.1 mg/dl (8.4-10.2); Carbon Dioxide 28 mmol/L (22-30); Chloride 105 mmol/L (98-107); Glucose 183 mg/dl (70-99); Potassium 4.7 mmol/L (3.5-5.1); Sodium 137 mmol/L (135-145); Total Bilirubin 0.6 mg/dl (0.2-1.3); Total Protein 6.6 g/dl (6.3-8.2); eGFR > 60.00
[2025-04-20 14:27] VITALS: BP 174/72
[2025-04-20 16:16] VITALS: BP 170/68
== END 2025-04-20 17:21 | disposition home or self-care (01) ==
LOC: EMR 12:40
PROVIDERS: EMERGENCY PHYSICIAN Student in an Organized Health Care Education/Training Program; FAMILY PHYSICIAN Family Medicine
DX: K62.5 Hemorrhage of anus and rectum (principal); I10 Essential (primary) hypertension; E78.00 Pure hypercholesterolemia, unspecified; I48.91 Unspecified atrial fibrillation; Z79.01 Long term (current) use of anticoagulants; Z95.810 Presence of automatic (implantable) cardiac defibrillator; E11.9 Type 2 diabetes mellitus without complications
CPT/HCPCS: 99285; 74174; 80053; 85025; 85610; 85730; Q9967

== ENCOUNTER → 2025-07-27 09:11 | Outpatient (REF) | payer MEDICARE, SELFPAY ==
[2025-07-27 11:58] LABS: Hematocrit 36.1 % (39.0-52.0); Hemoglobin 11.8 g/dL (13.0-18.0); Mean Corp Hgb Conc. 32.7 g/dL (33.0-37.0); Mean Corpuscular Volume 97.6 fL (80.0-94.0); Platelet Count 142 10^3/uL (130-400); Red Cell Dist. Width 13.8 % (11.5-14.5)
[2025-07-27 12:09] LABS: ALT (SGPT) 17 U/L (0-50); AST (SGOT) 26 U/L (17-59); Albumin 4.2 g/dl (3.5-5.0); Alkaline Phosphatase 54 U/L (38-126); Blood Urea Nitrogen 19 mg/dl (9-20); Calcium 9.0 mg/dl (8.4-10.2); Carbon Dioxide 30 mmol/L (22-30); Chloride 104 mmol/L (98-107); Glucose 126 mg/dl (70-99); HDL Cholesterol 91 mg/dl; LDL Cholesterol, Calculated 51 mg/dl; Potassium 4.2 mmol/L (3.5-5.1); Sodium 139 mmol/L (135-145); Total Protein 6.9 g/dl (6.3-8.2); Very Low Density Lipoprotein 16 mg/dl (0-30); eGFR > 60.00
[2025-07-27 12:23] LABS: Microalb - Urine Creatinine 117.600 mg/dl
[2025-07-27 12:38] LABS: TSH 2.29 uIU/ml (0.47-4.68)
[2025-07-27 12:42] LABS: Microalbumin, Random Urine 1.6 mg/dl (0.6-1.7)
[2025-07-27 14:23] LABS: Glycohemoglobin (HgbA1c) 7.4 % (4.0-5.6)
== END ==
LOC: HWLAB 09:11
PROVIDERS: ATTENDING PHYSICIAN Physician Assistant; FAMILY PHYSICIAN Family Medicine; REFERRING PHYSICIAN Internal Medicine Cardiovascular Disease
DX: E10.65 Type 1 diabetes mellitus with hyperglycemia (principal)
CPT/HCPCS: 36415; 80053; 80061; 82043; 82570; 83036; 84156; 84443; 85027